=== PATIENT | female | born 1980 | race Caucasian/White ===

== ENCOUNTER 2020-02-01 15:25 | Inpatient (IN) | payer MEDICARE ==
[~2020-02-01] VITALS: Ht 188 cm; Wt 91.6 kg
[~2020-02-01 15:25] MED LIST: ARIP5TAB8 PO; CITA10TA99 PO; DIVA-80 PO; TRAZ-252 PO
[2020-02-02 00:05] VITALS: BP 127/79
[2020-02-02] MEDS: ZOLPIDEM TARTRATE 10 MG TABLET PO PRN (00:27)
[2020-02-02] MEDS ORDERED: INFLUENZA VIRUS VACCINE QVS 2020-21 (6MO+)/PF 60 MCG/0.5 ML SYRINGE IM ONE (00:45)
[2020-02-02] MEDS ORDERED: ONDANSETRON HCL 4 MG TABLET PO PRN (08:00)
[2020-02-02] MEDS ORDERED: LOPERAMIDE HCL 2 MG CAPSULE PO PRN (08:00)
[2020-02-02] MEDS ORDERED: ACETAMINOPHEN 325 MG TABLET PO PRN (08:00)
[2020-02-02] MEDS ORDERED: MAGNESIUM HYDROXIDE SUSPENSION 30 ML UDCUP PO PRN (08:00)
[2020-02-02] MEDS ORDERED: ALBUTEROL SULFATE HFA 90 MCG/PUFF 8 GM INHALER IH PRN (08:00)
[2020-02-02] MEDS ORDERED: GuaiFENesin/D-METHORPHAN [SUGAR-FREE] 200-20MG/10 ML SYRUP UDCUP PO PRN (08:00)
[2020-02-02] MEDS ORDERED: DOCUSATE SODIUM 100 MG CAPSULE PO PRN (08:00)
[2020-02-02] MEDS ORDERED: NICOTINE 14 MG/24 HOUR PATCH TD PRN (08:00)
[2020-02-02] MEDS ORDERED: CloNIDine HCL 0.1 MG TABLET PO PRN (08:00)
[2020-02-02] MEDS ORDERED: PETROLATUM,WHITE 28 GM JELLY TP PRN (08:00)
[2020-02-02] MEDS ORDERED: IBUPROFEN 400 MG TABLET PO PRN (08:00)
[2020-02-02] MEDS ORDERED: MAG HYDROX/AL HYDROX/SIMETH ES 30 ML SUSPENSION UDCUP PO PRN (08:00)
[2020-02-02] MEDS: PANTOPRAZOLE SODIUM 40 MG DR TABLET PO SCH (08:11)
[2020-02-02 08:19] VITALS: BP 126/71
[2020-02-02] MEDS: ARIPiprazole 10 MG TABLET PO SCH (12:21)
[2020-02-02] MEDS: CITALOPRAM HYDROBROMIDE 10 MG TABLET PO SCH (12:21)
[2020-02-02] MEDS: LORazepam 2 MG TABLET PO PRN (15:08)
[2020-02-02 16:04] VITALS: BP 117/74
[2020-02-02] MEDS: TraZODone HCL 100 MG TABLET PO SCH (20:29)
[2020-02-02] MEDS: DIVALPROEX SODIUM 500 MG ER TABLET PO SCH (20:29)
[2020-02-03 00:10] VITALS: BP 121/71
[2020-02-03 08:05] LABS: BASOPHILS % (AUTO) 0.2 % (0.0-2.0); EOSINOPHILS % (AUTO) 4.2 % (1.0-6.0); HEMATOCRIT 36.7 % (36-46); HEMOGLOBIN 12.1 g/dL (12.0-16.0); LYMPHOCYTES # (AUTO) 1.6 K/uL (1.0-4.8); LYMPHOCYTES % (AUTO) 33.3 % (22.0-44.0); MEAN CORPUSCULAR HEMOGLOBIN 30.4 pg (26.0-34.0); MEAN CORPUSCULAR VOLUME 92 fL (80-100); MONOCYTES # (AUTO) 0.5 K/uL (0.1-1.0); MONOCYTES % (AUTO) 9.7 % (2.0-9.0); NEUTROPHILS # (AUTO) 2.5 K/uL (1.8-7.7); NEUTROPHILS % (AUTO) 52.6 % (40.0-70.0); PLATELET COUNT (AUTO) 156 K/uL (150-450); RED BLOOD CELL COUNT(AUTO) 3.98 MIL/uL (4.00-5.20); RED CELL DISTRIBUTION WIDTH 13.3 % (11.5-14.5)
[2020-02-03 08:07] VITALS: BP 104/61
[2020-02-03 08:37] LABS: ALANINE AMINOTRANSFERASE 20 U/L (12-78); ALBUMIN 2.8 g/dL (3.4-5.0); ALKALINE PHOSPHATASE 122 U/L (46-116); ANION GAP 2 mmol/L (8-16); ASPARTATE AMINOTRANSFERASE 15 U/L (15-37); BILIRUBIN,TOTAL 0.4 mg/dL (0.1-1.0); CALCIUM, TOTAL 8.8 mg/dL (8.8-10.5); CARBON DIOXIDE 32 mmol/L (22-29); CHLORIDE 106 mmol/L (98-107); CHOL/HDL RATIO 3.9 (3.9-5.7); CHOLESTEROL 205 mg/dL (131-200); CREATININE 0.53 mg/dL (0.60-1.30); FREE T4 (FREE THYROXINE) 1.19 ng/dL (0.76-1.46); GLOMERULAR FILTR. RATE CALC > 60 mL/min (>60); GLUCOSE,RANDOM 88 mg/dL (70-110); HDL CHOLESTEROL 52 mg/dL (40-60); LDL CHOL (CALC.) 137 mg/dL (0-130); POTASSIUM 4.3 mmol/L (3.5-5.1); SODIUM SERUM 140 mmol/L (136-145); THYROID STIMULATING HORMONE 2.51 uIU/mL (0.36-3.74); TOTAL PROTEIN, SERUM 6.8 g/dL (6.4-8.2); TRIGLYCERIDES 82 mg/dL (15-150); UREA NITROGEN, BLOOD 15 mg/dL (7-18)
[2020-02-03 08:44] LABS: HEMOGLOBIN A1C 5.1 % (3.8-5.6)
[2020-02-03 09:02] LABS: BILIRUBIN,URINE NEGATIVE (NEGATIVE); GLUCOSE, URINE (UA) NEGATIVE (NEGATIVE); KETONES,URINE NEGATIVE (NEGATIVE); LEUKOCYTE ESTERASE ,URINE MODERATE (NEGATIVE); NITRATE,URINE NEGATIVE (NEGATIVE); OCCULT BLOOD,URINE NEGATIVE (NEGATIVE); PROTEIN,URINE NEGATIVE (NEGATIVE); UROBILINOGEN,URINE 0.2 mg/dL (<=1.0)
[2020-02-03] MEDS: PANTOPRAZOLE SODIUM 40 MG DR TABLET PO SCH (09:07)
[2020-02-03] MEDS: ARIPiprazole 10 MG TABLET PO SCH (09:07)
[2020-02-03] MEDS: CITALOPRAM HYDROBROMIDE 10 MG TABLET PO SCH (09:07)
[2020-02-03 09:08] LABS: AMPHET/METH SCREEN,URINE NEGATIVE (NEGATIVE); BARBITURATE SCREEN, URINE NEGATIVE (NEGATIVE); BENZODIAZEPINES SCREEN,URINE NEGATIVE (NEGATIVE); CANNABINOID SCREEN,URINE NEGATIVE (NEGATIVE); COCAINE SCREEN,URINE NEGATIVE (NEGATIVE); METHADONE SCREEN, URINE NEGATIVE (NEGATIVE); OPIATE SCREEN,URINE NEGATIVE (NEGATIVE)
[2020-02-03 09:09] LABS: PHENCYCLIDINE SCREEN,URINE NEGATIVE (NEGATIVE)
[2020-02-03 09:11] LABS: APPEARANCE,URINE SLIGHTLY CLOUDY (CLEAR)
[2020-02-03 09:12] LABS: BACTERIA,URINE Moderate /HPF (None Seen); RBC,URINE 0-2 /HPF (0-2); SQUAMOUS EPITHELIAL CELL,UR Moderate /LPF (None Seen)
[2020-02-03] MEDS: HALOPERIDOL 5 MG TABLET PO PRN ×2 (09:25→16:25)
[2020-02-03] MEDS: LORazepam 2 MG TABLET PO PRN (11:04)
[2020-02-03 16:04] VITALS: BP 94/63
[2020-02-03] MEDS: CEPHALEXIN MONOHYDRATE 500 MG CAPSULE PO SCH (16:24)
[2020-02-03] MEDS: DIVALPROEX SODIUM 500 MG ER TABLET PO SCH (20:26)
[2020-02-03] MEDS: TraZODone HCL 100 MG TABLET PO SCH (20:26)
[2020-02-04] MEDS: CEPHALEXIN MONOHYDRATE 500 MG CAPSULE PO SCH ×3 (00:40→16:10)
[2020-02-04 00:41] VITALS: BP 112/70
[2020-02-04] MEDS: HALOPERIDOL 5 MG TABLET PO PRN ×2 (01:38→16:10)
[2020-02-04] MEDS: LORazepam 2 MG TABLET PO PRN ×2 (03:06→16:10)
[2020-02-04 08:41] VITALS: BP 104/63
[2020-02-04] MEDS: CITALOPRAM HYDROBROMIDE 10 MG TABLET PO SCH (09:49)
[2020-02-04] MEDS: ARIPiprazole 10 MG TABLET PO SCH (09:49)
[2020-02-04] MEDS: PANTOPRAZOLE SODIUM 40 MG DR TABLET PO SCH (09:49)
[2020-02-04 16:09] VITALS: BP 108/72
[2020-02-04] MEDS: TraZODone HCL 100 MG TABLET PO SCH (20:33)
[2020-02-04] MEDS: DIVALPROEX SODIUM 500 MG ER TABLET PO SCH (20:33)
[2020-02-05] MEDS: CEPHALEXIN MONOHYDRATE 500 MG CAPSULE PO SCH ×3 (00:15→15:56)
[2020-02-05] MEDS: HALOPERIDOL 5 MG TABLET PO PRN ×2 (07:13→12:39)
[2020-02-05] MEDS: LORazepam 2 MG TABLET PO PRN ×2 (07:13→15:56)
[2020-02-05 07:15] VITALS: BP 122/81
[2020-02-05] MEDS: CITALOPRAM HYDROBROMIDE 10 MG TABLET PO SCH (08:43)
[2020-02-05] MEDS: ARIPiprazole 15 MG TABLET PO SCH (08:43)
[2020-02-05] MEDS: PANTOPRAZOLE SODIUM 40 MG DR TABLET PO SCH (08:43)
[2020-02-05 08:59] VITALS: BP 113/68
[2020-02-05 16:45] VITALS: BP 101/64
[2020-02-05] MEDS: TraZODone HCL 100 MG TABLET PO SCH (20:32)
[2020-02-05] MEDS: DIVALPROEX SODIUM 500 MG ER TABLET PO SCH (20:32)
[2020-02-06] MEDS: CEPHALEXIN MONOHYDRATE 500 MG CAPSULE PO SCH ×3 (00:35→15:58)
[2020-02-06 02:56] VITALS: BP 110/98
[2020-02-06 08:07] VITALS: BP 121/71
[2020-02-06] MEDS: PANTOPRAZOLE SODIUM 40 MG DR TABLET PO SCH (08:08)
[2020-02-06] MEDS: OMEGA-3/DHA/EPA/FISH OIL 1,000 MG CAPSULE PO SCH (08:08)
[2020-02-06] MEDS: ARIPiprazole 15 MG TABLET PO SCH (08:08)
[2020-02-06] MEDS: CITALOPRAM HYDROBROMIDE 10 MG TABLET PO SCH (08:08)
[2020-02-06] MEDS: MULTIVITAMINS WITH MINERALS, THERAPEUTIC TABLET PO SCH (08:08)
[2020-02-06] MEDS: HALOPERIDOL 5 MG TABLET PO PRN (15:58)
[2020-02-06 16:09] VITALS: BP 101/72
[2020-02-06] MEDS: TraZODone HCL 100 MG TABLET PO SCH (20:31)
[2020-02-06] MEDS: DIVALPROEX SODIUM 500 MG ER TABLET PO SCH (20:31)
[2020-02-07] MEDS: ZOLPIDEM TARTRATE 10 MG TABLET PO PRN (00:24)
[2020-02-07] MEDS: CEPHALEXIN MONOHYDRATE 500 MG CAPSULE PO SCH ×3 (00:24→16:31)
[2020-02-07] MEDS: HALOPERIDOL 5 MG TABLET PO PRN (00:24)
[2020-02-07 01:36] VITALS: BP 107/56
[2020-02-07] MEDS: CITALOPRAM HYDROBROMIDE 10 MG TABLET PO SCH (08:38)
[2020-02-07] MEDS: PANTOPRAZOLE SODIUM 40 MG DR TABLET PO SCH (08:38)
[2020-02-07] MEDS: ARIPiprazole 15 MG TABLET PO SCH (08:38)
[2020-02-07] MEDS: OMEGA-3/DHA/EPA/FISH OIL 1,000 MG CAPSULE PO SCH (08:38)
[2020-02-07] MEDS: MULTIVITAMINS WITH MINERALS, THERAPEUTIC TABLET PO SCH (08:38)
[2020-02-07 08:41] VITALS: BP 125/63
[2020-02-07 12:33] LABS: COVID AG,FIA SOURCE NASOPHARYNGEAL
[2020-02-07 16:09] VITALS: BP 104/67
[2020-02-07] MEDS: LORazepam 2 MG TABLET PO PRN (17:59)
[2020-02-07] MEDS: DIVALPROEX SODIUM 500 MG ER TABLET PO SCH (20:58)
[2020-02-07] MEDS: TraZODone HCL 100 MG TABLET PO SCH (20:58)
[2020-02-08] VITALS (7 sets, daily range): BP systolic 90–121; BP diastolic 56–77
[2020-02-08] MEDS: CEPHALEXIN MONOHYDRATE 500 MG CAPSULE PO SCH ×3 (00:30→16:29)
[2020-02-08] MEDS: ARIPiprazole 15 MG TABLET PO SCH (08:07)
[2020-02-08] MEDS: OMEGA-3/DHA/EPA/FISH OIL 1,000 MG CAPSULE PO SCH (08:07)
[2020-02-08] MEDS: MULTIVITAMINS WITH MINERALS, THERAPEUTIC TABLET PO SCH (08:07)
[2020-02-08] MEDS: PANTOPRAZOLE SODIUM 40 MG DR TABLET PO SCH (08:07)
[2020-02-08] MEDS: CITALOPRAM HYDROBROMIDE 10 MG TABLET PO SCH (08:07)
[2020-02-08] MEDS ORDERED: LORazepam 2 MG/ML VIAL IM PRN (10:00)
[2020-02-08] MEDS: TraZODone HCL 100 MG TABLET PO SCH (20:59)
[2020-02-08] MEDS: DIVALPROEX SODIUM 500 MG ER TABLET PO SCH (20:59)
[2020-02-09] MEDS: MULTIVITAMINS WITH MINERALS, THERAPEUTIC TABLET PO SCH ×2 (08:33→09:00)
[2020-02-09] MEDS: OMEGA-3/DHA/EPA/FISH OIL 1,000 MG CAPSULE PO SCH ×2 (08:33→09:00)
[2020-02-09] MEDS: PANTOPRAZOLE SODIUM 40 MG DR TABLET PO SCH ×2 (08:33→09:00)
[2020-02-09] MEDS: CITALOPRAM HYDROBROMIDE 10 MG TABLET PO SCH ×2 (08:33→09:00)
[2020-02-09] MEDS: ARIPiprazole 15 MG TABLET PO SCH ×2 (08:33→09:00)
[2020-02-09 09:37] LABS: APPEARANCE,URINE TURBID (CLEAR); BILIRUBIN,URINE NEGATIVE (NEGATIVE); GLUCOSE, URINE (UA) NEGATIVE (NEGATIVE); KETONES,URINE 15 mg/dL (NEGATIVE); LEUKOCYTE ESTERASE ,URINE TRACE (NEGATIVE); NITRATE,URINE NEGATIVE (NEGATIVE); OCCULT BLOOD,URINE NEGATIVE (NEGATIVE); PH,URINE 6.5 (5.0-8.0); PROTEIN,URINE NEGATIVE (NEGATIVE)
[2020-02-09 09:39] LABS: AMORPHOUS SEDIMENT,UR Many /LPF (None Seen); BACTERIA,URINE None Seen /HPF (None Seen); RBC,URINE None Seen /HPF (0-2); SQUAMOUS EPITHELIAL CELL,UR Many /LPF (None Seen); WBC,URINE 0-2 /HPF (0-5)
[2020-02-09 12:40] VITALS: BP 119/70
[2020-02-09 14:29] VITALS: BP 100/56
[2020-02-09 16:29] VITALS: BP 116/69
[2020-02-09] MEDS: HALOPERIDOL 5 MG TABLET PO PRN (18:08)
[2020-02-09 18:44] VITALS: BP 116/69
[2020-02-09] MEDS ORDERED: LORazepam 1 MG TABLET PO PRN (18:45)
[2020-02-09] MEDS: DIVALPROEX SODIUM 500 MG ER TABLET PO SCH (20:17)
[2020-02-09] MEDS: TraZODone HCL 100 MG TABLET PO SCH (20:17)
[2020-02-09 22:12] VITALS: BP 100/68
[2020-02-10] MEDS: ZOLPIDEM TARTRATE 10 MG TABLET PO PRN (00:40)
[2020-02-10 00:43] VITALS: BP 116/65
[2020-02-10] MEDS: PANTOPRAZOLE SODIUM 40 MG DR TABLET PO SCH (08:05)
[2020-02-10] MEDS: MULTIVITAMINS WITH MINERALS, THERAPEUTIC TABLET PO SCH (08:05)
[2020-02-10] MEDS: CITALOPRAM HYDROBROMIDE 10 MG TABLET PO SCH (08:05)
[2020-02-10] MEDS: OMEGA-3/DHA/EPA/FISH OIL 1,000 MG CAPSULE PO SCH (08:06)
[2020-02-10] MEDS: ARIPiprazole 15 MG TABLET PO SCH (08:06)
[2020-02-10] MEDS: CEPHALEXIN MONOHYDRATE 500 MG CAPSULE PO SCH ×3 (09:03→16:33)
[2020-02-10] MEDS: PHENAZOPYRIDINE HCL 200 MG TABLET PO SCH ×3 (09:04→16:33)
[2020-02-10] MEDS: HALOPERIDOL 5 MG TABLET PO PRN (18:10)
[2020-02-10] MEDS: DIVALPROEX SODIUM 500 MG ER TABLET PO SCH (20:28)
[2020-02-10] MEDS: TraZODone HCL 50 MG TABLET PO SCH (20:28)
[2020-02-11 08:26] VITALS: BP 109/69
[2020-02-11] MEDS: PHENAZOPYRIDINE HCL 200 MG TABLET PO SCH ×3 (08:44→16:44)
[2020-02-11] MEDS: CEPHALEXIN MONOHYDRATE 500 MG CAPSULE PO SCH ×3 (08:44→16:31)
[2020-02-11] MEDS: PANTOPRAZOLE SODIUM 40 MG DR TABLET PO SCH (08:45)
[2020-02-11] MEDS: MULTIVITAMINS WITH MINERALS, THERAPEUTIC TABLET PO SCH (08:45)
[2020-02-11] MEDS: CITALOPRAM HYDROBROMIDE 10 MG TABLET PO SCH (08:45)
[2020-02-11] MEDS: OMEGA-3/DHA/EPA/FISH OIL 1,000 MG CAPSULE PO SCH (08:45)
[2020-02-11] MEDS: ARIPiprazole 10 MG TABLET PO SCH (08:45)
[2020-02-11 16:09] VITALS: BP 109/68
[2020-02-11] MEDS: TraZODone HCL 50 MG TABLET PO SCH (21:19)
[2020-02-11] MEDS: DIVALPROEX SODIUM 500 MG ER TABLET PO SCH (21:19)
[2020-02-12 08:11] VITALS: BP 116/66
[2020-02-12] MEDS: ARIPiprazole 10 MG TABLET PO SCH (09:07)
[2020-02-12] MEDS: OMEGA-3/DHA/EPA/FISH OIL 1,000 MG CAPSULE PO SCH (09:08)
[2020-02-12] MEDS: PANTOPRAZOLE SODIUM 40 MG DR TABLET PO SCH (09:08)
[2020-02-12] MEDS: MULTIVITAMINS WITH MINERALS, THERAPEUTIC TABLET PO SCH (09:08)
[2020-02-12] MEDS: CITALOPRAM HYDROBROMIDE 10 MG TABLET PO SCH (09:08)
[2020-02-12] MEDS: CEPHALEXIN MONOHYDRATE 500 MG CAPSULE PO SCH (09:08)
[2020-02-12] MEDS: PHENAZOPYRIDINE HCL 200 MG TABLET PO SCH (09:08)
[2020-02-12] MEDS ORDERED: PHEN-1103 PO (10:20)
[2020-02-12] MEDS ORDERED: ARIP10TA8 PO (10:20)
[2020-02-12] MEDS ORDERED: OMEG-136 PO (10:20)
[2020-02-12] MEDS ORDERED: CITA10TA99 PO (10:20)
[2020-02-12] MEDS ORDERED: MULT-1203 PO (10:20)
[2020-02-12] MEDS ORDERED: PANT-31 PO ×2 (10:20→10:23)
[2020-02-12] MEDS ORDERED: TRAZ-257 PO (10:20)
== END 2020-02-12 10:30 | disposition home or self-care (01) | DRG 885 ==
LOC: B2X 23:07
PROVIDERS: ADMIT Psychiatry & Neurology Psychiatry; ATTEND Psychiatry & Neurology Psychiatry
DX: F25.1 Schizoaffective disorder, depressive type (principal); R45.851 Suicidal ideations; N39.0 Urinary tract infection, site not specified; G40.909 Epilepsy, unspecified, not intractable, without status epilepticus; Z20.828 Contact with and (suspected) exposure to other viral communicable diseases; Z91.5 Personal history of self-harm; Z91.81 History of falling; Z59.0 Homelessness; Z79.899 Other long term (current) drug therapy
CPT/HCPCS: 80307; 83036; 84439; 84443; 87086; 87426

== ENCOUNTER 2020-04-21 00:34 | Inpatient (IN) | payer MEDICARE ==
[~2020-04-21] VITALS: Ht 188 cm; Wt 101.6 kg
[~2020-04-21 00:34] MED LIST changes: +ARIP10TA8 PO; -ARIP5TAB8 PO; +MULT-1203 PO; +OMEG-136 PO; +PANT-31 PO; +PHEN-1103 PO; -TRAZ-252 PO; +TRAZ-257 PO
[2020-04-21] MEDS ORDERED: HALOPERIDOL 5 MG TABLET PO PRN (02:00)
[2020-04-21 03:02] VITALS: BP 101/65
[2020-04-21] MEDS: ZOLPIDEM TARTRATE 10 MG TABLET PO PRN (03:06)
[2020-04-21] MEDS ORDERED: ONDANSETRON HCL 4 MG TABLET PO PRN (07:45)
[2020-04-21] MEDS ORDERED: GuaiFENesin/D-METHORPHAN [SUGAR-FREE] 200-20MG/10 ML SYRUP UDCUP PO PRN (07:45)
[2020-04-21] MEDS ORDERED: MAGNESIUM HYDROXIDE SUSPENSION 30 ML UDCUP PO PRN (07:45)
[2020-04-21] MEDS ORDERED: DOCUSATE SODIUM 100 MG CAPSULE PO PRN (07:45)
[2020-04-21] MEDS ORDERED: NICOTINE 14 MG/24 HOUR PATCH TD PRN (07:45)
[2020-04-21] MEDS ORDERED: MAG HYDROX/AL HYDROX/SIMETH ES 30 ML SUSPENSION UDCUP PO PRN (07:45)
[2020-04-21] MEDS ORDERED: PETROLATUM,WHITE 28 GM JELLY TP PRN (07:45)
[2020-04-21] MEDS ORDERED: ALBUTEROL SULFATE HFA 90 MCG/PUFF 8 GM INHALER IH PRN (07:45)
[2020-04-21] MEDS ORDERED: LOPERAMIDE HCL 2 MG CAPSULE PO PRN (07:45)
[2020-04-21] MEDS ORDERED: CloNIDine HCL 0.1 MG TABLET PO PRN (07:45)
[2020-04-21 08:08] VITALS: BP 115/85
[2020-04-21] MEDS: PANTOPRAZOLE SODIUM 40 MG DR TABLET PO SCH (08:13)
[2020-04-21] MEDS: CEPHALEXIN MONOHYDRATE 500 MG CAPSULE PO SCH ×4 (08:28→20:02)
[2020-04-21 08:43] LABS: BASOPHILS % (AUTO) 0.2 % (0.0-2.0); EOSINOPHILS % (AUTO) 3.2 % (1.0-6.0); HEMATOCRIT 38.4 % (36-46); HEMOGLOBIN 12.6 g/dL (12.0-16.0); LYMPHOCYTES # (AUTO) 1.7 K/uL (1.0-4.8); MEAN CORPUSCULAR HEMOGLOBIN 29.4 pg (26.0-34.0); MEAN CORPUSCULAR HGB CONC 32.8 G/dL (31.0-37.0); MEAN CORPUSCULAR VOLUME 90 fL (80-100); MONOCYTES # (AUTO) 0.4 K/uL (0.1-1.0); MONOCYTES % (AUTO) 6.9 % (2.0-9.0); NEUTROPHILS # (AUTO) 3.1 K/uL (1.8-7.7); NEUTROPHILS % (AUTO) 57.7 % (40.0-70.0); PLATELET COUNT (AUTO) 173 K/uL (150-450); RED BLOOD CELL COUNT(AUTO) 4.29 MIL/uL (4.00-5.20); RED CELL DISTRIBUTION WIDTH 14.7 % (11.5-14.5)
[2020-04-21 09:00] LABS: HEMOGLOBIN A1C 5.3 % (3.8-5.6)
[2020-04-21] MEDS ORDERED: OMEGA-3/DHA/EPA/FISH OIL 1,000 MG CAPSULE PO SCH (09:00)
[2020-04-21 09:18] LABS: ALANINE AMINOTRANSFERASE 26 U/L (12-78); ALBUMIN 3.1 g/dL (3.4-5.0); ALKALINE PHOSPHATASE 126 U/L (46-116); ANION GAP 6 mmol/L (8-16); ASPARTATE AMINOTRANSFERASE 17 U/L (15-37); BILIRUBIN,TOTAL 0.3 mg/dL (0.1-1.0); CALCIUM, TOTAL 9.1 mg/dL (8.8-10.5); CARBON DIOXIDE 30 mmol/L (22-29); CHLORIDE 105 mmol/L (98-107); CHOL/HDL RATIO 3.1 (3.9-5.7); CHOLESTEROL 195 mg/dL (131-200); CREATININE 0.48 mg/dL (0.60-1.30); FREE T4 (FREE THYROXINE) 1.17 ng/dL (0.76-1.46); GLOMERULAR FILTR. RATE CALC > 60 mL/min (>60); GLUCOSE,RANDOM 89 mg/dL (70-110); HDL CHOLESTEROL 63 mg/dL (40-60); LDL CHOL (CALC.) 113 mg/dL (0-130); POTASSIUM 4.4 mmol/L (3.5-5.1); SODIUM SERUM 141 mmol/L (136-145); THYROID STIMULATING HORMONE 3.95 uIU/mL (0.36-3.74); TOTAL PROTEIN, SERUM 7.4 g/dL (6.4-8.2); TRIGLYCERIDES 93 mg/dL (15-150); UREA NITROGEN, BLOOD 14 mg/dL (7-18)
[2020-04-21] MEDS: MULTIVITAMINS, THERAPEUTIC TABLET PO SCH (09:21)
[2020-04-21] MEDS: OMEGA-3/DHA/EPA/FISH OIL 1,000 MG CAPSULE PO SCH (10:29)
[2020-04-21] MEDS: PHENAZOPYRIDINE HCL 200 MG TABLET PO SCH ×3 (11:34→17:02)
[2020-04-21] MEDS: CITALOPRAM HYDROBROMIDE 10 MG TABLET PO SCH (14:02)
[2020-04-21] MEDS: ARIPiprazole 10 MG TABLET PO SCH (14:02)
[2020-04-21 16:02] VITALS: BP 118/74
[2020-04-21 20:17] VITALS: BP 118/56
[2020-04-22] MEDS: PANTOPRAZOLE SODIUM 40 MG DR TABLET PO SCH (09:01)
[2020-04-22] MEDS: CITALOPRAM HYDROBROMIDE 10 MG TABLET PO SCH (09:01)
[2020-04-22] MEDS: MULTIVITAMINS, THERAPEUTIC TABLET PO SCH (09:01)
[2020-04-22] MEDS: ARIPiprazole 10 MG TABLET PO SCH (09:01)
[2020-04-22] MEDS: OMEGA-3/DHA/EPA/FISH OIL 1,000 MG CAPSULE PO SCH (09:10)
[2020-04-22] MEDS: CEPHALEXIN MONOHYDRATE 500 MG CAPSULE PO SCH ×4 (09:11→20:58)
[2020-04-22 11:13] VITALS: BP 140/88
[2020-04-22] MEDS: PHENAZOPYRIDINE HCL 200 MG TABLET PO SCH ×3 (12:20→16:06)
[2020-04-22 18:27] VITALS: BP 115/68
[2020-04-23 08:00] VITALS: BP 106/67
[2020-04-23] MEDS: CEPHALEXIN MONOHYDRATE 500 MG CAPSULE PO SCH ×4 (09:36→20:00)
[2020-04-23] MEDS: ARIPiprazole 10 MG TABLET PO SCH (09:36)
[2020-04-23] MEDS: OMEGA-3/DHA/EPA/FISH OIL 1,000 MG CAPSULE PO SCH (09:36)
[2020-04-23] MEDS: PHENAZOPYRIDINE HCL 200 MG TABLET PO SCH ×3 (09:36→16:34)
[2020-04-23] MEDS: CITALOPRAM HYDROBROMIDE 10 MG TABLET PO SCH (09:36)
[2020-04-23] MEDS: PANTOPRAZOLE SODIUM 40 MG DR TABLET PO SCH (09:37)
[2020-04-23] MEDS: MULTIVITAMINS, THERAPEUTIC TABLET PO SCH (09:37)
[2020-04-23] MEDS: IBUPROFEN 400 MG TABLET PO PRN (12:36)
[2020-04-23 16:59] VITALS: BP 121/56
[2020-04-23] MEDS: ACETAMINOPHEN 325 MG TABLET PO PRN (17:35)
[2020-04-24 09:00] VITALS: BP 99/62
[2020-04-24] MEDS: MULTIVITAMINS, THERAPEUTIC TABLET PO SCH (09:04)
[2020-04-24] MEDS: PANTOPRAZOLE SODIUM 40 MG DR TABLET PO SCH (09:04)
[2020-04-24] MEDS: OMEGA-3/DHA/EPA/FISH OIL 1,000 MG CAPSULE PO SCH (09:04)
[2020-04-24] MEDS: CEPHALEXIN MONOHYDRATE 500 MG CAPSULE PO SCH ×4 (09:04→20:01)
[2020-04-24] MEDS: IBUPROFEN 400 MG TABLET PO PRN (09:04)
[2020-04-24] MEDS: CITALOPRAM HYDROBROMIDE 10 MG TABLET PO SCH (09:04)
[2020-04-24] MEDS: ARIPiprazole 10 MG TABLET PO SCH (09:04)
[2020-04-24] MEDS: PHENAZOPYRIDINE HCL 200 MG TABLET PO SCH ×3 (09:49→16:21)
[2020-04-24 16:28] VITALS: BP 98/66
[2020-04-25 08:00] VITALS: BP 112/78
[2020-04-25] MEDS: CITALOPRAM HYDROBROMIDE 10 MG TABLET PO SCH (08:53)
[2020-04-25] MEDS: CEPHALEXIN MONOHYDRATE 500 MG CAPSULE PO SCH ×4 (08:53→21:48)
[2020-04-25] MEDS: IBUPROFEN 400 MG TABLET PO PRN (08:53)
[2020-04-25] MEDS: PHENAZOPYRIDINE HCL 200 MG TABLET PO SCH ×3 (08:53→16:38)
[2020-04-25] MEDS: OMEGA-3/DHA/EPA/FISH OIL 1,000 MG CAPSULE PO SCH (08:53)
[2020-04-25] MEDS: ARIPiprazole 10 MG TABLET PO SCH (08:54)
[2020-04-25] MEDS: MULTIVITAMINS, THERAPEUTIC TABLET PO SCH (08:54)
[2020-04-25] MEDS: PANTOPRAZOLE SODIUM 40 MG DR TABLET PO SCH (09:04)
[2020-04-25 16:25] VITALS: BP 103/59
[2020-04-26] MEDS: PANTOPRAZOLE SODIUM 40 MG DR TABLET PO SCH (08:58)
[2020-04-26] MEDS: MULTIVITAMINS, THERAPEUTIC TABLET PO SCH (08:58)
[2020-04-26] MEDS: ARIPiprazole 10 MG TABLET PO SCH (08:59)
[2020-04-26] MEDS: CEPHALEXIN MONOHYDRATE 500 MG CAPSULE PO SCH ×4 (08:59→21:27)
[2020-04-26] MEDS: CITALOPRAM HYDROBROMIDE 10 MG TABLET PO SCH (08:59)
[2020-04-26] MEDS: OMEGA-3/DHA/EPA/FISH OIL 1,000 MG CAPSULE PO SCH (08:59)
[2020-04-26] MEDS: PHENAZOPYRIDINE HCL 200 MG TABLET PO SCH ×3 (09:29→16:51)
[2020-04-26] MEDS: IBUPROFEN 400 MG TABLET PO PRN (12:20)
[2020-04-26 12:21] VITALS: BP 113/57
[2020-04-26 13:20] VITALS: BP 109/59
[2020-04-26 16:47] VITALS: BP 119/63
[2020-04-27] MEDS: PANTOPRAZOLE SODIUM 40 MG DR TABLET PO SCH (08:16)
[2020-04-27] MEDS: CITALOPRAM HYDROBROMIDE 10 MG TABLET PO SCH (08:16)
[2020-04-27] MEDS: MULTIVITAMINS, THERAPEUTIC TABLET PO SCH (08:16)
[2020-04-27] MEDS: OMEGA-3/DHA/EPA/FISH OIL 1,000 MG CAPSULE PO SCH (08:16)
[2020-04-27] MEDS: ARIPiprazole 10 MG TABLET PO SCH (08:16)
[2020-04-27] MEDS: PHENAZOPYRIDINE HCL 200 MG TABLET PO SCH ×3 (08:17→16:04)
[2020-04-27] MEDS: CEPHALEXIN MONOHYDRATE 500 MG CAPSULE PO SCH ×4 (08:22→20:32)
[2020-04-27 09:41] VITALS: BP 94/65
[2020-04-27] MEDS: LORazepam 2 MG TABLET PO PRN (10:25)
[2020-04-27 16:00] VITALS: BP 106/56
[2020-04-27 16:37] LABS: COVID AG,FIA SOURCE NASOPHARYNGEAL
[2020-04-27] MEDS: ZOLPIDEM TARTRATE 10 MG TABLET PO PRN (20:33)
[2020-04-28 08:47] VITALS: BP 114/58
[2020-04-28] MEDS: OMEGA-3/DHA/EPA/FISH OIL 1,000 MG CAPSULE PO SCH (09:31)
[2020-04-28] MEDS: CITALOPRAM HYDROBROMIDE 10 MG TABLET PO SCH (09:31)
[2020-04-28] MEDS: ARIPiprazole 10 MG TABLET PO SCH (09:31)
[2020-04-28] MEDS: PHENAZOPYRIDINE HCL 200 MG TABLET PO SCH ×3 (09:31→16:02)
[2020-04-28] MEDS: PANTOPRAZOLE SODIUM 40 MG DR TABLET PO SCH (09:31)
[2020-04-28] MEDS: MULTIVITAMINS, THERAPEUTIC TABLET PO SCH (09:31)
[2020-04-28] MEDS ORDERED: CITALOPRAM HYDROBROMIDE 10 MG TABLET PO ONE (10:00)
[2020-04-28 16:08] VITALS: BP 117/67
[2020-04-28] MEDS: LORazepam 2 MG TABLET PO PRN (17:50)
[2020-04-29 08:00] VITALS: BP 126/67
[2020-04-29] MEDS: ARIPiprazole 10 MG TABLET PO SCH (09:12)
[2020-04-29] MEDS: PHENAZOPYRIDINE HCL 200 MG TABLET PO SCH ×3 (09:12→16:35)
[2020-04-29] MEDS: PANTOPRAZOLE SODIUM 40 MG DR TABLET PO SCH (09:13)
[2020-04-29] MEDS: OMEGA-3/DHA/EPA/FISH OIL 1,000 MG CAPSULE PO SCH (09:13)
[2020-04-29] MEDS: MULTIVITAMINS, THERAPEUTIC TABLET PO SCH (09:13)
[2020-04-29] MEDS: CITALOPRAM HYDROBROMIDE 20 MG TABLET PO SCH (09:13)
[2020-04-29 17:04] VITALS: BP 106/65
[2020-04-29] MEDS: IBUPROFEN 400 MG TABLET PO PRN (18:10)
[2020-04-29 18:11] VITALS: BP 110/66
[2020-04-30 08:00] VITALS: BP 99/59
[2020-04-30] MEDS: PHENAZOPYRIDINE HCL 200 MG TABLET PO SCH ×3 (10:01→16:14)
[2020-04-30] MEDS: CITALOPRAM HYDROBROMIDE 20 MG TABLET PO SCH (10:02)
[2020-04-30] MEDS: OMEGA-3/DHA/EPA/FISH OIL 1,000 MG CAPSULE PO SCH (10:02)
[2020-04-30] MEDS: ARIPiprazole 10 MG TABLET PO SCH (10:02)
[2020-04-30] MEDS: MULTIVITAMINS, THERAPEUTIC TABLET PO SCH (10:04)
[2020-04-30] MEDS: PANTOPRAZOLE SODIUM 40 MG DR TABLET PO SCH (10:04)
[2020-04-30 16:00] VITALS: BP 96/58
[2020-04-30] MEDS: IBUPROFEN 400 MG TABLET PO PRN (16:44)
[2020-04-30 20:55] VITALS: BP 97/59
[2020-05-01 04:28] VITALS: BP 98/53
[2020-05-01] MEDS: IBUPROFEN 400 MG TABLET PO PRN (05:36)
[2020-05-01] MEDS: PANTOPRAZOLE SODIUM 40 MG DR TABLET PO SCH (08:34)
[2020-05-01] MEDS: ARIPiprazole 10 MG TABLET PO SCH (08:34)
[2020-05-01] MEDS: MULTIVITAMINS, THERAPEUTIC TABLET PO SCH (08:34)
[2020-05-01] MEDS: PHENAZOPYRIDINE HCL 200 MG TABLET PO SCH ×3 (08:34→16:12)
[2020-05-01] MEDS: OMEGA-3/DHA/EPA/FISH OIL 1,000 MG CAPSULE PO SCH (08:34)
[2020-05-01] MEDS: CITALOPRAM HYDROBROMIDE 20 MG TABLET PO SCH (08:35)
[2020-05-01 09:00] VITALS: BP 118/74
[2020-05-01 16:00] VITALS: BP 108/67
[2020-05-02] MEDS: PANTOPRAZOLE SODIUM 40 MG DR TABLET PO SCH (08:39)
[2020-05-02] MEDS: ARIPiprazole 10 MG TABLET PO SCH (08:40)
[2020-05-02] MEDS: OMEGA-3/DHA/EPA/FISH OIL 1,000 MG CAPSULE PO SCH (08:40)
[2020-05-02] MEDS: MULTIVITAMINS, THERAPEUTIC TABLET PO SCH (08:40)
[2020-05-02] MEDS: PHENAZOPYRIDINE HCL 200 MG TABLET PO SCH ×3 (08:40→16:25)
[2020-05-02] MEDS: CITALOPRAM HYDROBROMIDE 20 MG TABLET PO SCH (08:40)
[2020-05-02 08:52] VITALS: BP 110/59
[2020-05-02 16:00] VITALS: BP 115/74
[2020-05-02] MEDS: LORazepam 2 MG TABLET PO PRN (16:58)
[2020-05-03] MEDS: OMEGA-3/DHA/EPA/FISH OIL 1,000 MG CAPSULE PO SCH (08:00)
[2020-05-03] MEDS: CITALOPRAM HYDROBROMIDE 20 MG TABLET PO SCH (08:00)
[2020-05-03] MEDS: PANTOPRAZOLE SODIUM 40 MG DR TABLET PO SCH (08:00)
[2020-05-03] MEDS: PHENAZOPYRIDINE HCL 200 MG TABLET PO SCH ×3 (08:00→16:59)
[2020-05-03] MEDS: ARIPiprazole 10 MG TABLET PO SCH (08:00)
[2020-05-03] MEDS: MULTIVITAMINS, THERAPEUTIC TABLET PO SCH (08:00)
[2020-05-03 10:20] VITALS: BP 108/68
[2020-05-03 12:41] VITALS: BP 89/60
[2020-05-03] MEDS: ACETAMINOPHEN 325 MG TABLET PO PRN (12:41)
[2020-05-03 13:41] VITALS: BP 10/76
[2020-05-03 16:00] VITALS: BP 99/69
[2020-05-04] MEDS: PHENAZOPYRIDINE HCL 200 MG TABLET PO SCH ×3 (08:03→17:03)
[2020-05-04] MEDS: OMEGA-3/DHA/EPA/FISH OIL 1,000 MG CAPSULE PO SCH (08:03)
[2020-05-04] MEDS: CITALOPRAM HYDROBROMIDE 20 MG TABLET PO SCH (08:03)
[2020-05-04] MEDS: PANTOPRAZOLE SODIUM 40 MG DR TABLET PO SCH (08:03)
[2020-05-04] MEDS: ARIPiprazole 10 MG TABLET PO SCH (08:03)
[2020-05-04] MEDS: MULTIVITAMINS, THERAPEUTIC TABLET PO SCH (08:03)
[2020-05-04 08:13] VITALS: BP 130/69
[2020-05-04 14:48] LABS: COVID AG,FIA SOURCE NASOPHARYNGEAL
[2020-05-04 16:00] VITALS: BP 103/60
[2020-05-05 08:37] VITALS: BP 132/93
[2020-05-05] MEDS: PHENAZOPYRIDINE HCL 200 MG TABLET PO SCH ×3 (08:37→16:13)
[2020-05-05] MEDS: MULTIVITAMINS, THERAPEUTIC TABLET PO SCH (08:37)
[2020-05-05] MEDS: CITALOPRAM HYDROBROMIDE 20 MG TABLET PO SCH (08:37)
[2020-05-05] MEDS: PANTOPRAZOLE SODIUM 40 MG DR TABLET PO SCH (08:37)
[2020-05-05] MEDS: ARIPiprazole 10 MG TABLET PO SCH (08:37)
[2020-05-05] MEDS: OMEGA-3/DHA/EPA/FISH OIL 1,000 MG CAPSULE PO SCH (08:37)
[2020-05-05 16:41] VITALS: BP 99/69
[2020-05-06] MEDS: MULTIVITAMINS, THERAPEUTIC TABLET PO SCH (08:15)
[2020-05-06] MEDS: PANTOPRAZOLE SODIUM 40 MG DR TABLET PO SCH (08:15)
[2020-05-06] MEDS: ARIPiprazole 10 MG TABLET PO SCH (08:16)
[2020-05-06] MEDS: PHENAZOPYRIDINE HCL 200 MG TABLET PO SCH ×3 (08:16→16:31)
[2020-05-06] MEDS: CITALOPRAM HYDROBROMIDE 20 MG TABLET PO SCH (08:16)
[2020-05-06] MEDS: OMEGA-3/DHA/EPA/FISH OIL 1,000 MG CAPSULE PO SCH (08:16)
[2020-05-06 10:36] VITALS: BP 98/63
[2020-05-06 19:25] VITALS: BP 115/61
[2020-05-06 19:25] LABS: BASOPHILS % (AUTO) 0.4 % (0.0-2.0); EOSINOPHILS % (AUTO) 3.4 % (1.0-6.0); HEMATOCRIT 38.2 % (36-46); HEMOGLOBIN 12.4 g/dL (12.0-16.0); LYMPHOCYTES # (AUTO) 2.1 K/uL (1.0-4.8); LYMPHOCYTES % (AUTO) 35.8 % (22.0-44.0); MEAN CORPUSCULAR HEMOGLOBIN 29.1 pg (26.0-34.0); MEAN CORPUSCULAR HGB CONC 32.5 G/dL (31.0-37.0); MEAN CORPUSCULAR VOLUME 89 fL (80-100); MONOCYTES # (AUTO) 0.4 K/uL (0.1-1.0); MONOCYTES % (AUTO) 7.4 % (2.0-9.0); NEUTROPHILS # (AUTO) 3.1 K/uL (1.8-7.7); PLATELET COUNT (AUTO) 179 K/uL (150-450); RED BLOOD CELL COUNT(AUTO) 4.28 MIL/uL (4.00-5.20); RED CELL DISTRIBUTION WIDTH 15.3 % (11.5-14.5)
[2020-05-06 19:41] LABS: ANION GAP 8 mmol/L (8-16); CALCIUM, TOTAL 8.9 mg/dL (8.8-10.5); CARBON DIOXIDE 27 mmol/L (22-29); CHLORIDE 103 mmol/L (98-107); CREATININE 0.55 mg/dL (0.60-1.30); GLOMERULAR FILTR. RATE CALC > 60 mL/min (>60); GLUCOSE,RANDOM 108 mg/dL (70-110); POTASSIUM 4.3 mmol/L (3.5-5.1); SODIUM SERUM 138 mmol/L (136-145); UREA NITROGEN, BLOOD 20 mg/dL (7-18)
[2020-05-06] MEDS: ALBUTEROL SULFATE 2.5 MG/0.5 ML NEB SOLUTION NEB ONE (20:00)
[2020-05-06 20:37] LABS: AMMONIA 28 umol/L (11-32); TROPONIN I < 0.02 ng/mL (0.00-0.05)
[2020-05-06 20:48] LABS: VALPROIC ACID < 3 mcg/mL (50-100)
[2020-05-07 00:26] LABS: APPEARANCE,URINE CLEAR (CLEAR); BILIRUBIN,URINE NEGATIVE (NEGATIVE); GLUCOSE, URINE (UA) NEGATIVE (NEGATIVE); KETONES,URINE 15 mg/dL (NEGATIVE); LEUKOCYTE ESTERASE ,URINE MODERATE (NEGATIVE); NITRATE,URINE POSITIVE (NEGATIVE); OCCULT BLOOD,URINE NEGATIVE (NEGATIVE); PROTEIN,URINE NEGATIVE (NEGATIVE)
[2020-05-07 00:47] LABS: BACTERIA,URINE Rare /HPF (None Seen); RBC,URINE 0-2 /HPF (0-2); SQUAMOUS EPITHELIAL CELL,UR Few /LPF (None Seen)
[2020-05-07 08:00] VITALS: BP 96/41
[2020-05-07] MEDS: CEPHALEXIN MONOHYDRATE 500 MG CAPSULE PO SCH ×3 (10:27→16:15)
[2020-05-07] MEDS: ARIPiprazole 10 MG TABLET PO SCH (10:27)
[2020-05-07] MEDS: CITALOPRAM HYDROBROMIDE 20 MG TABLET PO SCH (10:27)
[2020-05-07] MEDS: PANTOPRAZOLE SODIUM 40 MG DR TABLET PO SCH (10:27)
[2020-05-07] MEDS: MULTIVITAMINS, THERAPEUTIC TABLET PO SCH (10:27)
[2020-05-07] MEDS: OMEGA-3/DHA/EPA/FISH OIL 1,000 MG CAPSULE PO SCH (10:27)
[2020-05-07] MEDS: PHENAZOPYRIDINE HCL 200 MG TABLET PO SCH ×3 (10:28→16:15)
[2020-05-07 16:00] VITALS: BP 102/62
[2020-05-08 06:01] VITALS: BP 124/57
[2020-05-08] MEDS: PHENAZOPYRIDINE HCL 200 MG TABLET PO SCH ×3 (09:48→16:22)
[2020-05-08] MEDS: PANTOPRAZOLE SODIUM 40 MG DR TABLET PO SCH (09:48)
[2020-05-08] MEDS: ARIPiprazole 10 MG TABLET PO SCH (09:48)
[2020-05-08] MEDS: MULTIVITAMINS, THERAPEUTIC TABLET PO SCH (09:48)
[2020-05-08] MEDS: OMEGA-3/DHA/EPA/FISH OIL 1,000 MG CAPSULE PO SCH (09:48)
[2020-05-08] MEDS: CEPHALEXIN MONOHYDRATE 500 MG CAPSULE PO SCH ×3 (09:49→16:23)
[2020-05-08] MEDS: CITALOPRAM HYDROBROMIDE 20 MG TABLET PO SCH (09:49)
[2020-05-08 12:52] VITALS: BP 106/59
[2020-05-08 16:15] VITALS: BP 110/59
[2020-05-09 08:00] VITALS: BP 100/68
[2020-05-09] MEDS: CITALOPRAM HYDROBROMIDE 20 MG TABLET PO SCH (08:45)
[2020-05-09] MEDS: MULTIVITAMINS, THERAPEUTIC TABLET PO SCH (08:45)
[2020-05-09] MEDS: PANTOPRAZOLE SODIUM 40 MG DR TABLET PO SCH (08:45)
[2020-05-09] MEDS: CEPHALEXIN MONOHYDRATE 500 MG CAPSULE PO SCH ×3 (08:45→16:32)
[2020-05-09] MEDS: OMEGA-3/DHA/EPA/FISH OIL 1,000 MG CAPSULE PO SCH (08:45)
[2020-05-09] MEDS: PHENAZOPYRIDINE HCL 200 MG TABLET PO SCH ×3 (08:45→16:32)
[2020-05-09] MEDS: ARIPiprazole 10 MG TABLET PO SCH (08:45)
[2020-05-09 16:16] VITALS: BP 99/69
[2020-05-10 08:19] VITALS: BP 111/59
[2020-05-10] MEDS ORDERED: CITA-144 PO (08:35)
[2020-05-10] MEDS ORDERED: ARIP10TA8 PO (08:35)
[2020-05-10] MEDS: MULTIVITAMINS, THERAPEUTIC TABLET PO SCH (09:19)
[2020-05-10] MEDS: PANTOPRAZOLE SODIUM 40 MG DR TABLET PO SCH (09:19)
[2020-05-10] MEDS: PHENAZOPYRIDINE HCL 200 MG TABLET PO SCH ×2 (09:20→12:22)
[2020-05-10] MEDS: OMEGA-3/DHA/EPA/FISH OIL 1,000 MG CAPSULE PO SCH (09:20)
[2020-05-10] MEDS: CEPHALEXIN MONOHYDRATE 500 MG CAPSULE PO SCH ×2 (09:20→12:22)
[2020-05-10] MEDS: ARIPiprazole 10 MG TABLET PO SCH (09:21)
[2020-05-10] MEDS ORDERED: CEPH500C3 PO (10:13)
[2020-05-10] MEDS: CITALOPRAM HYDROBROMIDE 20 MG TABLET PO SCH (10:35)
== END 2020-05-10 14:22 | disposition home or self-care (01) | DRG 885 ==
LOC: B2X 01:20 → UNDOADMIN 01:20 → 3EX 19:15
PROC: 0HBMXZZ Excision of Right Foot Skin, External Approach (ICD-10-PCS; principal; 2020-04-23)
PROC: 0HBRXZZ Excision of Toe Nail, External Approach (ICD-10-PCS; 2020-04-23)
DX: F25.1 Schizoaffective disorder, depressive type (principal); L03.119 Cellulitis of unspecified part of limb; R45.851 Suicidal ideations; N39.0 Urinary tract infection, site not specified; B35.1 Tinea unguium; G40.909 Epilepsy, unspecified, not intractable, without status epilepticus; K21.9 Gastro-esophageal reflux disease without esophagitis; Z20.822 Contact with and (suspected) exposure to COVID-19; E03.8 Other specified hypothyroidism; E78.5 Hyperlipidemia, unspecified; S90.211A Contusion of right great toe with damage to nail, initial encounter; X58.XXXA Exposure to other specified factors, initial encounter; L60.0 Ingrowing nail; L57.0 Actinic keratosis; Z59.0 Homelessness; Z63.4 Disappearance and death of family member; Z91.018 Allergy to other foods; Z79.899 Other long term (current) drug therapy; Z91.5 Personal history of self-harm; Y93.89 Activity, other specified; Y92.89 Other specified places as the place of occurrence of the external cause; Y99.8 Other external cause status
CPT/HCPCS: 70450; 83036; 84439; 84443; 87081; 87426; 94640; 99285; G0378; J3535; 36415-L1; 36415-TC; 71045-TC; 80061-TC; J7613